=== PATIENT | female | born 1960 | race Caucasian/White ===

== ENCOUNTER 2025-09-07 14:35 | Inpatient (IN) | payer OTHER, SELFPAY ==
[2025-08-31 09:06] LABS: Hematocrit 42.1 % (37.0-47.0); Hemoglobin 14.4 g/dL (12.0-16.0); Mean Corp Hgb Conc. 34.2 g/dL (33.0-37.0); Mean Corpuscular Volume 89.6 fL (81.0-99.0); Platelet Count 245 10^3/uL (130-400); Red Cell Dist. Width 12.5 % (11.5-14.5)
[2025-08-31 09:59] LABS: ALT (SGPT) 40 U/L (0-35); AST (SGOT) 41 U/L (14-36); Albumin 4.7 g/dl (3.5-5.0); Alkaline Phosphatase 45 U/L (38-126); Blood Urea Nitrogen 10 mg/dl (7-17); Calcium 9.5 mg/dl (8.4-10.2); Carbon Dioxide 31 mmol/L (22-30); Chloride 104 mmol/L (98-107); Glucose 95 mg/dl (70-99); Potassium 4.3 mmol/L (3.5-5.1); Sodium 139 mmol/L (135-145); Total Protein 7.1 g/dl (6.3-8.2); eGFR > 60.00
[2025-08-31 13:49] VITALS: BMI 37.1
[2025-08-31 15:46] VITALS: BMI 37.1
[2025-09-07] VITALS (20 sets, daily range): BP systolic 117–152; BP diastolic 63–89; PULSE 71; O2SAT 93
[2025-09-07] MEDS: NORMOSOL-R/PLASMALYTE-A 1000 IV ×3 (07:30→23:59)
[2025-09-07] MEDS: LYRICA 150 MG PO (07:46)
[2025-09-07] MEDS: METHOCARBAMOL 1500 MG PO ×4 (07:47→23:59)
[2025-09-07] MEDS: VANCOCIN 530 MG IV (08:00)
[2025-09-07] MEDS: TYLENOL 1000 MG PO ×3 (08:04→21:00)
[2025-09-07] MEDS: DILAUDID 0.25 MG IV (10:38)
--- NOTE | 2025-09-07 12:25 | W.PN.ORTHO ---
Today's Communication / Plan
-
d/c when stable
Plan
.
Surgery / Date: Cx ACDF Dr Mercado 09/07/25
Activity:
Out of bed.
PT/OT
Discharge Plan: Home
Vital Signs and Labs
.
Vital Signs and Labs:
Lab Results
08/31/25 07:24
08/31/25 07:24
Temp Pulse Resp BP Pulse Ox
97.8 F 89 23 126/72 96
09/07/25 10:02 09/07/25 11:45 09/07/25 11:45 09/07/25 11:45 09/07/25 11:45
--- NOTE | 2025-09-07 12:35 | W.DS.TRANS ---
DC Summary - Field Spec
-
Discharge Instructions:
Sleep Apnea Risk Intermediate
Discharge Diagnosis/Procedures Cx ACDF Mercado 09/07/25
Diet As tolerated
Activity No strenuous activity
Driving Restrictions No driving
Instructions:
Stand-Alone Forms: Mercado Cervical D/C Inst.
Changes to Home Medications: Yes
Discharge Medications:
DC Medications w/original date entered in [employer]
Zinc With Vitamin C 50 mg PO DAILY 08/31/25
aspirin 81 mg tablet 81 mg PO DAILY 08/31/25
Held on 09/07/25. Instructions: Resume on 09/12/25.
multivitamin 1 tab PO DAILY 08/31/25
Held on 09/07/25. Instructions: Resume on 09/15/25.
omega 9-gaw-tzm-fish oil 1,200 mg (144 mg-216 mg) capsule (Fish Oil) 1 cap PO DAILY 08/31/25
Held on 09/07/25. Instructions: Resume on 09/15/25.
rosuvastatin 5 mg tablet 5 mg PO HS 08/31/25
Saccharomyces boulardii 250 mg capsule (Florastor) 250 mg PO BID #1 cap 09/07/25
acetaminophen 325 mg tablet (Tylenol) 650 mg (2 x 325 mg) PO QID #1 tab 09/07/25
clindamycin HCl 300 mg capsule 300 mg PO QID Infection #20 caps 09/07/25
dexamethasone 4 mg tablet 4 mg PO BID inflammation #6 tabs 09/07/25
docusate sodium 100 mg capsule (Colace) 100 mg PO BID stool softner #1 cap 09/07/25
gabapentin 300 mg capsule 300 mg PO HS sleep/pain #10 caps 09/07/25
magnesium hydroxide 400 mg/5 mL oral suspension (Milk of Magnesia) 30 ml PO HS PRN constipation #1 mL 09/07/25
ondansetron 4 mg disintegrating tablet 4 mg PO Q6H PRN n/v #20 tabs 09/07/25
oxycodone 5 mg tablet 5 mg PO Q6H PRN 1 tab moderate pain, 2 tabs severe pain #30 tabs 09/07/25
sennosides 8.6 mg tablet (Senokot) 17.2 mg (2 x 8.6 mg) PO BID laxative #2 tabs 09/07/25
Home Medication Changes
Saccharomyces boulardii 250 mg capsule (Florastor) 250 mg PO BID #1 cap 09/07/25
acetaminophen 325 mg tablet (Tylenol) 650 mg (2 x 325 mg) PO QID #1 tab 09/07/25
clindamycin HCl 300 mg capsule 300 mg PO QID Infection #20 caps 09/07/25
dexamethasone 4 mg tablet 4 mg PO BID inflammation #6 tabs 09/07/25
docusate sodium 100 mg capsule (Colace) 100 mg PO BID stool softner #1 cap 09/07/25
gabapentin 300 mg capsule 300 mg PO HS sleep/pain #10 caps 09/07/25
magnesium hydroxide 400 mg/5 mL oral suspension (Milk of Magnesia) 30 ml PO HS PRN constipation #1 mL 09/07/25
ondansetron 4 mg disintegrating tablet 4 mg PO Q6H PRN n/v #20 tabs 09/07/25
oxycodone 5 mg tablet 5 mg PO Q6H PRN 1 tab moderate pain, 2 tabs severe pain #30 tabs 09/07/25
sennosides 8.6 mg tablet (Senokot) 17.2 mg (2 x 8.6 mg) PO BID laxative #2 tabs 09/07/25
Pending Results: No
--- NOTE | 2025-09-07 14:30 | TRANSFER ---
report given to KYLE Newton. pt transported with all belongings, in no acute distress, via bed with transport members to room 2108.
[2025-09-07] MEDS: ANCEF 5 IV ×2 (14:59→22:46)
[2025-09-07] MEDS: ULTRAM 50 MG PO ×3 (14:59→23:55)
--- NOTE | 2025-09-07 15:54 | CM ---
manager review reviewed patient's chart and met with patient and patient was admitted for cervical fusion, patient reports she lives alone, in a split level home, 6 steps un 6 steps up, to main level. Patient is independent with adl's and ambulation.
No dme. Patient states she plans on staying with her sister in [place] when cleared for discharge. case operator reviewed visiting nurse options and patient is not sure she needs vn services will await PT/OT evaluations.
PCP: Jonatan Farrell
Pharmacy: [facility] in [place]
Plan; Home to sister's house in [place], sister will be at hospital tomorrow at 9:30am to review all discharge instructions with patient. Patient is not sure she needs visiting nurses at discharge.
[2025-09-07] MEDS: LYRICA 75 MG PO (18:00)
[2025-09-07] MEDS: COLACE 100 MG PO (20:13)
[2025-09-07] MEDS: DECADRON 4 MG IV (20:13)
[2025-09-07] MEDS: SENOKOT 17.2 MG PO (20:14)
[2025-09-07] MEDS: CRESTOR 5 MG PO (21:01)
[2025-09-08] MEDS: ULTRAM PO (02:10)
[2025-09-08 03:00] VITALS: BP 123/65
[2025-09-08] MEDS: TYLENOL 1000 MG PO ×2 (03:01→08:08)
[2025-09-08] MEDS: LYRICA 75 MG PO (06:12)
[2025-09-08] MEDS: ULTRAM 50 MG PO ×2 (06:12→10:10)
[2025-09-08 07:20] VITALS: BP 110/61
[2025-09-08 07:22] LABS: Hematocrit 37.3 % (37.0-47.0); Hemoglobin 12.8 g/dL (12.0-16.0)
[2025-09-08 08:01] LABS: Blood Urea Nitrogen 8 mg/dl (7-17); Calcium 8.7 mg/dl (8.4-10.2); Carbon Dioxide 27 mmol/L (22-30); Chloride 101 mmol/L (98-107); Estimated Creatinine Clearance 100 ml/min; Glucose 135 mg/dl (70-99); Potassium 4.1 mmol/L (3.5-5.1); Sodium 133 mmol/L (135-145); eGFR > 60.00
[2025-09-08] MEDS: SENOKOT 17.2 MG PO (08:08)
[2025-09-08] MEDS: COLACE 100 MG PO (08:08)
[2025-09-08] MEDS: METHOCARBAMOL 1500 MG PO (08:08)
[2025-09-08] MEDS: DECADRON 4 MG IV (08:09)
--- NOTE | 2025-09-08 08:12 | W.DS.TRANS ---
DC Summary - Bilingual Executive Assistant
-
Discharge Instructions:
Sleep Apnea Risk Intermediate
Discharge Diagnosis/Procedures Cx ACDF Dr Mercado 09/07/25
Diet As tolerated
Activity No strenuous activity
Driving Restrictions No driving
Instructions:
Stand-Alone Forms: Mercado Cervical D/C Inst.
Changes to Home Medications: No
Discharge Medications:
DC Medications w/original date entered in [employer]
Zinc With Vitamin C 50 mg PO DAILY Supplement 08/31/25
aspirin 81 mg tablet 81 mg PO DAILY Blood Clot Prevention/Tx 08/31/25
Held on 09/07/25. Instructions: Resume on 09/12/25.
multivitamin 1 tab PO DAILY Supplement 08/31/25
Held on 09/07/25. Instructions: Resume on 09/15/25.
omega 5-jdx-bke-fish oil 1,200 mg (144 mg-216 mg) capsule (Fish Oil) 1 cap PO DAILY Supplement 08/31/25
Held on 09/07/25. Instructions: Resume on 09/15/25.
rosuvastatin 5 mg tablet 5 mg PO HS High Cholesterol 08/31/25
Saccharomyces boulardii 250 mg capsule (Florastor) 250 mg PO BID #1 cap 09/07/25
acetaminophen 325 mg tablet (Tylenol) 650 mg (2 x 325 mg) PO QID #1 tab 09/07/25
clindamycin HCl 300 mg capsule 300 mg PO QID Infection #20 caps 09/07/25
dexamethasone 4 mg tablet 4 mg PO BID inflammation #6 tabs 09/07/25
docusate sodium 100 mg capsule (Colace) 100 mg PO BID stool softner #1 cap 09/07/25
gabapentin 300 mg capsule 300 mg PO HS sleep/pain #10 caps 09/07/25
magnesium hydroxide 400 mg/5 mL oral suspension (Milk of Magnesia) 30 ml PO HS PRN constipation #1 mL 09/07/25
ondansetron 4 mg disintegrating tablet 4 mg PO Q6H PRN n/v #20 tabs 09/07/25
oxycodone 5 mg tablet 5 mg PO Q6H PRN 1 tab moderate pain, 2 tabs severe pain #30 tabs 09/07/25
sennosides 8.6 mg tablet (Senokot) 17.2 mg (2 x 8.6 mg) PO BID laxative #2 tabs 09/07/25
Home Medication Changes
Pending Results: No
--- NOTE | 2025-09-08 08:12 | W.PN.SP ---
Today's Communication / Plan
-
s/p acdf
Doing well
No trouble breathing
PT
Subjective / Objective
Subjective Data
PT doing well
Still some weakness
Objective Data
Vital Signs
Temp Pulse Resp BP Pulse Ox
98.2 F 66 16 110/61 94
09/08/25 07:20 09/08/25 07:20 09/08/25 07:20 09/08/25 07:20 09/08/25 07:20
Intake and Output
09/07/25 09/08/25 09/09/25
06:59 06:59 06:59
Intake Total 1160 / 1160
Balance 1160 / 1160
Intake:
Oral fluids 960 / 960
IV fluids (Total) 200 / 200
Normosol 200 / 200
Other:
Number of approximated MODERATE 1
amounts of urine
Number of approximated LARGE 2
amounts of urine
Lab Data
09/08/25 06:48
09/08/25 06:48
Physical Exam
-
extension right hand little stronger
--- NOTE | 2025-09-08 09:06 | W.PN.ORTHO ---
Today's Communication / Plan
-
d/c
Assessment
.
Distal Motor Intact: Yes
Dressing:
Clean, dry and intact.
Plan
.
Surgery / Date: Cx ACDF Dr Mercado 09/07/25
Activity:
Out of bed.
PT/OT
Discharge Plan: Home
Subjective
.
.:
Patient resting comfortably.
Vital Signs and Labs
.
Vital Signs and Labs:
Lab Results
09/08/25 06:48
09/08/25 06:48
Temp Pulse Resp BP Pulse Ox
98.2 F 66 16 110/61 94
09/08/25 07:20 09/08/25 07:20 09/08/25 07:20 09/08/25 07:20 09/08/25 07:20
Physical Exam
-
HEENT: No pallor, cyanosis, or jaundice. Throat clear.
NECK: Supple. No JVD.
RESPIRATORY: Lungs clear to auscultation.
CVS: S1, S2 normal. RRR.� No murmur, rub or gallop.
ABDOMEN: Soft, non-tender. No distension. BS+/normal.
EXTREMITIES: strength equal, no calf pain with palpation
AGRICULTURAL EXTENSION OFFICER: AOx3. No focal deficits. news library director grossly intact
--- NOTE | 2025-09-08 09:14 | CM ---
Chart reviewed and plan is to home, no needs.
Plan; Home no needs.
[2025-09-08 09:59] VITALS: BP 127/64; PULSE 67; O2SAT 97
[2025-09-08 10:30] VITALS: BP 151/71
[2025-09-08 11:12] VITALS: BP 117/66
[2025-09-08] MEDS: NORMOSOL-R/PLASMALYTE-A IV (12:25)
--- NOTE | 2025-09-27 11:58 | W.PN.SP ---
Today's Communication / Plan
-
Patient intended as inpatient
Subjective / Objective
Subjective Data
PT was intended to be an inpatient
Objective Data
Vital Signs
Temp Pulse Resp BP Pulse Ox
98.8 F 57 16 117/66 92
09/08/25 11:12 09/08/25 11:12 09/08/25 11:12 09/08/25 11:12 09/08/25 11:12
Lab Data
09/08/25 06:48
09/08/25 06:48
== END 2025-09-08 13:39 | disposition home or self-care (01) | DRG 473 ==
LOC: 2 SOUTH 14:35
PROVIDERS: Physician Assistant Medical; ADMITTING PHYSICIAN Orthopaedic Surgery Orthopaedic Surgery of the Spine; FAMILY PHYSICIAN Internal Medicine
PROC: 0RG20A0 Fusion of 2 or more Cervical Vertebral Joints with Interbody Fusion Device, Anterior Approach, Anterior Column, Open Approach (ICD-10-PCS; 2025-09-07)
PROC: 0RT30ZZ Resection of Cervical Vertebral Disc, Open Approach (ICD-10-PCS; 2025-09-07)
PROC: 00NW0ZZ Release Cervical Spinal Cord, Open Approach (ICD-10-PCS; 2025-09-07)
PROC: 4A11X4G Monitoring of Peripheral Nervous Electrical Activity, Intraoperative, External Approach (ICD-10-PCS; 2025-09-07)
DX: M47.12 Other spondylosis with myelopathy, cervical region (principal); M48.02 Spinal stenosis, cervical region; M50.822 Other cervical disc disorders at C5-C6 level; E78.2 Mixed hyperlipidemia; K76.0 Fatty (change of) liver, not elsewhere classified; Z87.891 Personal history of nicotine dependence
CPT/HCPCS: 63081; 22551; 22552; 22853 ×2; 20930; 22845; 72020; 80048; 80053; 85014; 85018; 85027; 87070; 93005; 97116; 97162; 97166; 97535; C1713; C1776